=== PATIENT | female | born 1980 | race Caucasian/White ===

== ENCOUNTER 2021-11-09 18:26 | Emergency (ER) | payer OTHER ==
[2021-11-09] MEDS ORDERED: IBUPROFEN800 MG PO (20:58)
== END 2021-11-09 21:10 | disposition home or self-care (01) ==
LOC: FER 18:26
DX: S93.401A Sprain of unspecified ligament of right ankle, initial encounter (principal); F17.210 Nicotine dependence, cigarettes, uncomplicated; X58.XXXA Exposure to other specified factors, initial encounter; Y93.01 Activity, walking, marching and hiking; Y92.009 Unspecified place in unspecified non-institutional (private) residence as the place of occurrence of the external cause
CPT/HCPCS: 73610